=== PATIENT | male | born 1945 | race Caucasian/White ===

== ENCOUNTER → 2019-08-30 10:57 | Outpatient (BNVA) | payer OTHER, SELFPAY | PROVIDERS: PCP Family Medicine; Visit Provider Specialist | DX: G62.9 Polyneuropathy, unspecified (principal); S14.3XXA Injury of brachial plexus, initial encounter; X58.XXXA Exposure to other specified factors, initial encounter; Z87.891 Personal history of nicotine dependence | CPT/HCPCS: 99204 ==